=== PATIENT | female | born 1965 | race Caucasian/White ===

== ENCOUNTER → 2016-04-21 | Outpatient (CLI) | payer BC ==
--- NOTE | 2016-04-21 09:56 | DIAGNOSTIC IMAGING REPORT ---
TWO VIEW CHEST CLINICAL HISTORY: Fall. Left chest wall pain. FINDINGS: PA and lateral chest radiographs are obtained. No prior studies are available for comparison at the time of dictation. The cardiomediastinal silhouette is unremarkable. The lungs and pleural spaces are clear. There is no pneumothorax. The bony thorax appears intact. IMPRESSION: No active disease in the chest. Electronically signed by: José Gordon M.D. 04/21/2016 9:54 AM Dictated Date/Time: 04/21/2016 9:53 AM
== END | disposition home or self-care (01) ==
LOC: C.RAD1850 09:38
PROVIDERS: ATTEND Nurse Practitioner
DX: S29.8XXA Other specified injuries of thorax, initial encounter (principal); W00.9XXA Unspecified fall due to ice and snow, initial encounter